=== PATIENT | female | born 1975 | race Caucasian/White ===

== ENCOUNTER 2017-04-13 14:09 | Outpatient (CLI) | payer OTHER ==
--- NOTE | 2017-04-13 16:01 | Diagnostic Imaging Report ---
ALIYA ALLEN [facility] [address] [facility].[address] [id number] Report Submission Date: Apr 13, 2017 3:08:22 PM CDT Patient Study Name: MAGO RIBERA Date: Apr 13, 2017 2:12:12 PM CDT Modality Type: CR Gender: F Description: SPINE : 73 Institution: [facility] Physician: ALIYA ALLEN Examination: Cervical spine History: Trauma Comparison exams: None available Findings: 3 views of the cervical spine demonstrate normal height and alignment. No anterior compression. No abnormal listhesis. No odontoid abnormality. No prevertebral abnormality Impression: No osseous abnormality Electronically signed on Apr 13, 2017 3:08:22 PM CDT by: Sean WOOD
== END 2017-04-13 14:10 ==
LOC: RAD 14:09
PROVIDERS: ATTEND Physician Assistant
DX: M54.2 Cervicalgia (principal)
CPT/HCPCS: 72040